=== PATIENT | female | born 1990 | race Hispanic/Latino ===

== ENCOUNTER 2024-08-17 11:07 | Inpatient (IN) | payer BC ==
[~2024-08-17] VITALS: Ht 149.9 cm; Wt 94.3 kg
[2024-08-17] MEDS ORDERED: CALDOLOR 800MG+NS 250ML 250 ML IV PRN (12:00)
[2024-08-17] MEDS ORDERED: ceFAZolin SODIUM 2 GM VIAL IVP PRN (12:00)
[2024-08-17 12:13] LABS: APPEARANCE,URINE CLEAR (CLEAR); BILIRUBIN,URINE NEGATIVE (NEGATIVE); COLOR,URINE COLORLESS (YELLOW); GLUCOSE, URINE (UA) NEGATIVE (NEGATIVE); KETONES,URINE NEGATIVE (NEGATIVE); LEUKOCYTE ESTERASE ,URINE 25 Leu/uL (NEGATIVE); NITRATE,URINE NEGATIVE (NEGATIVE); OCCULT BLOOD,URINE NEGATIVE (NEGATIVE); PH,URINE 6.5 (5.0-8.0); PROTEIN,URINE NEGATIVE (NEGATIVE); UROBILINOGEN,URINE 0.2 mg/dL (0.2-1.0)
[2024-08-17 12:14] LABS: HEMATOCRIT 33.6 % (36-48); MEAN CORPUSCULAR HGB CONC 33.6 g/dL (32.0-36.0); MEAN CORPUSCULAR VOLUME 86.2 fL (79-99); RED BLOOD CELL COUNT(AUTO) 3.9 MIL/uL (4.00-5.50); RED CELL DISTRIBUTION WIDTH 15.5 % (11.0-15.5); WHITE BLOOD COUNT (AUTO) 10.6 K/uL (4.8-10.8)
[2024-08-17 12:22] LABS: ADD UA MICROSCOPIC YES
[2024-08-17 12:25] LABS: BACTERIA,URINE RARE /HPF (None Seen); INR <= 0.93 (0.85-1.15); PROTHROMBIN TIME 9.4 SEC (9.6-11.6); RBC,URINE 0-1 /HPF (0-1); SQUAMOUS EPITHELIAL CELL,UR FEW /HPF (0-2)
[2024-08-17 12:26] LABS: PARTIAL THROMBOPLASTIN TIME 27.3 SEC (26.3-35.5)
[2024-08-17 12:32] LABS: CREATININE 0.5 mg/dL (0.5-1.0)
[2024-08-17 12:42] LABS: ALBUMIN 2.7 g/dL (3.5-5.0); BILIRUBIN,TOTAL 0.3 mg/dL (0.2-1.0); TOTAL PROTEIN, SERUM 6.8 g/dL (6.0-8.3); URIC ACID 3.9 mg/dL (2.6-7.2)
[2024-08-17] MEDS: metoCLOPRAmide 10 MG/2 ML VIAL IVP ONE (12:55)
[2024-08-17] MEDS: LACTATED RINGERS 1000ML 1,000 ML IV SCH (12:56)
[2024-08-17 13:02] LABS: HIV 1&2 ANTIBODY Non-Reactive (Negative); HIV-1 p24 Antigen Non-Reactive (Negative)
[2024-08-17 14:20] LABS: FIBRINOGEN 679 mg/dL (180-350)
[2024-08-17] MEDS: ondanSETRON 4MG INJ IVP ONE (14:53)
[2024-08-17] MEDS ORDERED: morPHINE PF 100MG/10ML AMP IV ONE (15:24)
[2024-08-17] MEDS ORDERED: phenylEPHRINE HCL 10 MG/ML 1ML VIAL IV ONE (15:40)
[2024-08-17] MEDS ORDERED: ePHEDrine SULFate 50 MG/ML AMPULE ONE (15:41)
[2024-08-17] MEDS: MEPERIDINE-PF 25 MG/ML SYG ONE (17:27)
[2024-08-17] MEDS: PROMETHAZINE HCL 25 MG/ML 1ML AMPULE IM ONE (17:27)
[2024-08-17] MEDS: MEPERIDINE-PF 50 MG/ML SYG ONE (17:28)
[2024-08-17] MEDS ORDERED: PROMETHAZINE HCL 25 MG/ML 1ML AMPULE IM PRN (17:30)
[2024-08-17] MEDS ORDERED: MEPERIDINE-PF 75 MG/ML SYG IM PRN (17:30)
[2024-08-17] MEDS ORDERED: 0.9%NACL 10ML VIAL IVP PRN (17:30)
[2024-08-17 19:36] VITALS: BP 110/56; PULSE 88; RESP 18; TEMP 98
[2024-08-17 23:35] VITALS: BP 109/54; PULSE 85; RESP 16; TEMP 98.5
[2024-08-18] MEDS: CALDOLOR 800MG+NS 250ML 250 ML IV SCH (01:46)
[2024-08-18 03:50] VITALS: BP 103/61; PULSE 77; RESP 18; TEMP 98.5
[2024-08-18] MEDS ORDERED: BisaCODYL 10 MG SUPP.RECT RC PRN (04:30)
[2024-08-18] MEDS ORDERED: acetaMINOPHEN 500 MG TABLET PO PRN (04:30)
[2024-08-18 06:53] LABS: HEMATOCRIT 29.4 % (36-48); MEAN CORPUSCULAR HEMOGLOBIN 28.6 pg (27.0-33.0); MEAN CORPUSCULAR HGB CONC 32.7 g/dL (32.0-36.0); MEAN CORPUSCULAR VOLUME 87.5 fL (79-99); RED BLOOD CELL COUNT(AUTO) 3.36 MIL/uL (4.00-5.50); RED CELL DISTRIBUTION WIDTH 15.6 % (11.0-15.5); WHITE BLOOD COUNT (AUTO) 10.9 K/uL (4.8-10.8)
[2024-08-18] MEDS: DEXTROSE 5 %-0.45 % NACL 1,000 ML IV PRN (06:58)
--- NOTE | 2024-08-18 08:30 | NUR ---
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 Addendum: 08/18/24 at 1007 by DOUGLAS ALLEN RN RN Amended: Links added.
[2024-08-18 08:56] VITALS: BP 109/59; PULSE 84; TEMP 98.7
[2024-08-18] MEDS: doCUSate SODIUM 100 MG CAP PO SCH (08:58)
--- NOTE | 2024-08-18 09:07 | OP ---
DATE OF PROCEDURE: 08/17/2024 PREOPERATIVE DIAGNOSES: * Intrauterine at 38 weeks and 3 days. * Previous section. * A1 gestational diabetes mellitus. * Desires sterilization. POSTOPERATIVE DIAGNOSES: * Intrauterine at 38 weeks and 3 days. * Previous section. * A1 gestational diabetes mellitus. * Desires sterilization. PROCEDURE: Repeat low transverse section via Pfannenstiel. SURGEON: Courtney Gottlieb MD ANESTHESIA: Spinal with Duramorph. COMPLICATIONS: None. QUANTITATIVE BLOOD LOSS: 600 mL. FINDINGS: Viable and vigorous female in cephalic presentation weighing 7 pounds 4 ounces (3285 grams) with scores of 9 and 9, clear amniotic fluid. Normal uterus, tubes and ovaries. Minimal omental adhesions to anterior abdominal wall. DESCRIPTION OF PROCEDURE: The patient was taken to the operating room where spinal anesthesia was obtained. She was prepped and draped in the usual sterile fashion in dorsal supine position with a leftward tilt. Timeout was done. Skin was marked. A Pfannenstiel skin incision was made with a scalpel and carried through to underlying layers of fascia with the Bovie. The fascia was incised in the midline and the incision extended laterally. The rectus muscles were dissected off the fascia. Midline was identified. The peritoneum was entered upon separation of the rectus muscles and the abdominal incision extended superiorly and inferiorly with good visualization of the bladder. Omental adhesions to the anterior abdominal wall were lysed with Bovie cautery. The Joni O retractor was placed into the abdomen and set for appropriate tension. The vesicouterine peritoneum of lower uterine segment was tented up, incised with the Metzenbaum's and the bladder flap created with sharp dissection. The lower uterine segment was then incised in a transverse fashion with the scalpel. The uterine incision extended with digital traction. The surgeon's hand was inserted through the hysterotomy. The infant's head was gently grasped, flexed, brought to the incision and the head was delivered through the incision with the addition of fundal pressure and the remainder of the body delivered without difficulty. The nares and mouth were bulb suctioned. The cord was doubly clamped and cut and the infant was handed off to awaiting autism motor specialist. Cord blood was collected for analysis. The placenta was then removed manually. The uterus was exteriorized, cleared of all clots and debris with a moist laparotomy sponge until a clean intrauterine cavity was noted. The hysterotomy was then repaired in a running locked fashion using 0 Vicryl and excellent hemostasis was obtained. The posterior aspect of the uterus was examined and found to be without defect. Each fallopian tube was then identified. Each was followed out to its fimbrial end. Each was sharply dissected with advanced bipolar cautery for removal of the entire length of tube. The hemostasis was assured. The uterus was then carefully returned to the abdomen. The pelvis was copiously irrigated with warm normal saline. The gutters were cleared of all clots and debris. The repaired incision was examined and found to be hemostatic. One sheet of Interceed was placed over the hysterotomy. The peritoneum was then closed in a running fashion using 2-0 Vicryl. The fascia and rectus muscles were serially inspected. Hemostasis was obtained throughout with the Bovie. The fascia was then closed in a running fashion using looped 0 PDS. The subcutaneous tissue was copiously irrigated with warm normal saline and excellent hemostasis was obtained throughout with the Bovie. The subcutaneous fat was then approximated with simple interrupted stitches of 2-0 Vicryl and the skin closed in subcuticular fashion using Insorb sebastian. The patient tolerated the procedure well. All sponge, lap, needle and instrument counts were correct x 2. The patient received 2 grams of Ancef beginning of the procedure. She was taken to the recovery room awake in stable condition. TID: [id number] RECEIPT: [id number]
[2024-08-18 11:06] LABS: RAPID PLASMA REAGIN NONREACTIVE (NONREACTIVE)
[2024-08-18 11:35] VITALS: BP 100/56; PULSE 75; TEMP 98.1
[2024-08-18] MEDS: LANOLIN 30GM OINTMENT TP PRN (13:00)
[2024-08-18] MEDS: acetaMINOPHEN WITH coDEINE 1 TAB TAB PO PRN (14:22)
[2024-08-18 16:30] VITALS: BP 109/60; PULSE 81; RESP 18; TEMP 97.6
[2024-08-18] MEDS: HYDROcodone/APAP 5/325 1 TAB TABLET PO PRN (17:00)
[2024-08-18] MEDS: SIMETHICONE 80 MG TAB.CHEW PO PRN (17:00)
[2024-08-18] MEDS: ibuPROFEN 600 MG TABLET PO PRN (18:50)
[2024-08-18 20:20] VITALS: BP 114/60; PULSE 91; RESP 18; TEMP 98.4
[2024-08-19] VITALS: BP 127/66; PULSE 79; RESP 18; TEMP 98.2
[2024-08-19 04:00] VITALS: BP 124/65; PULSE 83; RESP 18; TEMP 97.5
--- NOTE | 2024-08-19 07:02 | NUR ---
Report given to yLndsey DAVEY for continuity of care.
[2024-08-19 08:00] VITALS: BP 112/75; PULSE 82; TEMP 97.8
[2024-08-19] MEDS: DIPH,PERTUSS(ACELL),TET VAC/PF 0.5 ML VIAL IM ONE (09:02)
[2024-08-19] MEDS: DIPH,PERTUSS(ACELL),TET VAC/PF 0.5 ML VIAL ONE (09:02)
--- NOTE | 2024-08-19 10:50 | NUR ---
DR WASHINGTON UPDATE GIVEN TO PT VIA PHONE, ORDER FOR DISCHARGE RECEIVED. PT STATES SHE IS READY FOR DISCHARGE. FOLLOW-UP APPOINTMENT MADE.
--- NOTE | 2024-08-19 12:00 | NUR ---
DISCHARGE DISCHARGED VIA WHEELCHAIR WITH IN ARMS, DEPARTED IN STABLE CONDITION VIA PRIVATE VEHICLE.
== END 2024-08-19 12:00 | disposition home or self-care (01) | DRG 785 ==
LOC: LDH 11:07 → WSH 20:25
PROVIDERS: ADMIT Obstetrics & Gynecology; ATTEND Obstetrics & Gynecology
PROC: 10D00Z1 Extraction of Products of Conception, Low, Open Approach (ICD-10-PCS; 2024-08-17)
PROC: 0UB70ZZ Excision of Bilateral Fallopian Tubes, Open Approach (ICD-10-PCS; principal; 2024-08-17 15:00)
PROC: 3E0234Z Introduction of Serum, Toxoid and Vaccine into Muscle, Percutaneous Approach (ICD-10-PCS; 2024-08-19)
DX: O24.420 Gestational diabetes mellitus in childbirth, diet controlled (principal); O34.211 Maternal care for low transverse scar from previous cesarean delivery; K66.0 Peritoneal adhesions (postprocedural) (postinfection); O99.62 Diseases of the digestive system complicating childbirth; Z30.2 Encounter for sterilization; Z37.0 Single live birth; Z3A.38 38 weeks gestation of pregnancy; O14.94 Unspecified pre-eclampsia, complicating childbirth; Z23 Encounter for immunization
CPT/HCPCS: 36415; 59510; 80053; 81001; 84550; 85027; 85384; 85610; 85730; 86592; 86701; 86850; 86900; 86901; 87340; 87390; 88302; 90715; A4344; G0378; J1741; J2175; J2210; J2274; J2371; J2405; J2550; J2765; J3490; J7120; A4248; A4510; A4649; C1765; J0690